=== PATIENT | female | born 1990 | race African-American/Black ===

== ENCOUNTER 2021-04-17 18:08 | Emergency (ER) | payer BC, MEDICAID ==
--- NOTE | 2021-04-17 19:06 | EDM.PDOC ---
ED HPI GENERAL MEDICAL PROBLEM - General Chief Complaint: Lower Extremity Injury/Pain Stated Complaint: BIG TOE BLEEDING Time Seen by Provider: 04/17/21 18:28 Source of Information: Reports: Patient, RN Notes Reviewed History Limitations: Reports: No Limitations - History of Present Illness INITIAL COMMENTS - FREE TEXT/NARRATIVE: Patient is a 30-year-old female presenting to the emergency department for evaluation of injury to her left great toenail. She reports that she has "ugly toes "so she gets acrylic toenails put on. She was pulling off a piece of the toenail and it started bleeding heavily. She is concerned because she is insulin-dependent diabetic. Denies significant pain to the extremity at this time. She is visiting from [place] and will not be going home until July. She does not have a primary care provider locally. - Related Data Allergies Allergy/AdvReac Type Severity Reaction Status Date / Time No Known Allergies Allergy Verified 04/17/21 18:25 Home Meds: Home Meds Insulin Glarg,Human.Rec.Analog [Lantus] 50 unit SQ BEDTIME 04/17/21 [History] Insuln Asp Prot/Insulin Aspart [NovoLOG Mix 70-30] 20 unit SQ TIDMEALS 04/17/21 [History] Losartan [Cozaar] 100 mg PO DAILY 04/17/21 [History] metFORMIN [Glucophage] 1,000 mg PO BID 04/17/21 [History] Past Medical History HEENT History: Reports: Impaired Vision Cardiovascular History: Reports: Hypertension INTERNAL AUDITOR History: Reports: Spontaneous Other Musculoskeletal History: right and left broken ankles Endocrine/Metabolic History: Reports: Diabetes, Type II, Obesity/BMI 30+ - Past Surgical History Other Musculoskeletal Surgeries/Procedures:: bilateral ankle sx Social & Family History - Tobacco Use Tobacco Use Status *Q: Never Tobacco User Second Hand Smoke Exposure: No - Caffeine Use Caffeine Use: Reports: Coffee, Energy Drinks, Soda, Tea - Recreational Drug Use Recreational Drug Use: No Review of Systems - Review of Systems Review Of Systems: Comprehensive ROS is negative, except as noted in HPI. ED EXAM, GENERAL - Physical Exam Exam: See Below Exam Limited By: No Limitations General Appearance: Alert, WD/WN, No Apparent Distress Respiratory/Chest: No Respiratory Distress, Lungs Clear, Normal Breath Sounds, No Accessory Muscle Use, Chest Non-Tender Cardiovascular: Normal Peripheral Pulses, Regular Rate, Rhythm, No Edema, No Gallop, No JVD, No Murmur, No Rub Extremities: Other (Scattered pieces of acrylic still attached to the left great toenail. Mild redness and dried blood to the cuticle. No active bleeding.) Neurological: Alert, Oriented, CN II-XII Intact, Normal Cognition, Normal Gait, Normal Reflexes, No Motor/Sensory Deficits Psychiatric: Normal Affect, Normal Mood Course - Vital Signs Last Recorded V/S: Last Vital Signs Temp 97.4 F 04/17/21 18:30 Pulse 113 H 04/17/21 18:30 Resp 16 04/17/21 18:30 BP 121/83 04/17/21 18:30 Pulse Ox 97 04/17/21 18:30 - Re-Assessments/Exams Free Text/Narrative Re-Assessment/Exam: 04/17/21 19:07 Patient is a 30-year-old female presenting to the emergency department with concerns of bleeding that she had to her left great toe as a result of picking at her acrylic toenail. On exam, there is a small amount of dried blood to the cuticle. Otherwise unremarkable. I had a long discussion with patient that given that she is insulin-dependent diabetic, she should avoid nail salon's. Discussed that she can go to podiatry for nail care. I will put her on cephalexin for infection prophylaxis since she does not have a primary care provider locally. Discharge instructions as documented. Departure - Departure Time of Disposition: 19:07 Disposition: Home, Self-Care 01 Condition: Good Clinical Impression: Injury of toenail Qualifiers: Encounter type: initial encounter Laterality: left Qualified Code(s): S99.922A - Unspecified injury of left foot, initial encounter - Discharge Information *PRESCRIPTION DRUG MONITORING PROGRAM REVIEWED*: No *COPY OF PRESCRIPTION DRUG MONITORING REPORT IN PATIENT RADHA: No Referrals: PCP,Not In Area [Primary Care Provider] - Additional Instructions: You were seen in the emergency department today for bleeding to your left big toenail after trying to remove acrylic nail. As we discussed, I would not recommend that you return to nail salon for toenail care given your high risk of infection being an insulin-dependent diabetic. You have been started on cephalexin for infection prevention. Take this as prescribed. You may also soak your foot intermittently for the next few days. If you should develop signs of infection such as increased redness and warmth, swelling, or purulent drainage, you should be reevaluated. Sepsis Event Note (ED) - Evaluation Sepsis Screening Result: No Definite Risk - Focused Exam Vital Signs: Vital Signs Temp Pulse Resp BP Pulse Ox 04/17/21 18:30 97.4 F 113 H 16 121/83 97
== END 2021-04-17 19:26 | disposition home or self-care (01) ==
LOC: JD.ED 18:08
DX: S99.922A Unspecified injury of left foot, initial encounter (principal); I10 Essential (primary) hypertension; E11.9 Type 2 diabetes mellitus without complications; E66.9 Obesity, unspecified; Z68.31 Body mass index [BMI] 31.0-31.9, adult; Z79.4 Long term (current) use of insulin; Z79.899 Other long term (current) drug therapy; X58.XXXA Exposure to other specified factors, initial encounter
CPT/HCPCS: 99282; 99283